=== PATIENT | female | born 1980 | race Two or more races ===

== ENCOUNTER → 2016-07-12 | Outpatient (CLI) | payer OTHER ==
[2016-07-12 11:13] LABS: AUTOMATED NEUTROPHIL # 1.7 TH/MM3 (1.8-7.7); BASOPHIL # 0.1 TH/MM3 (0-0.2); BASOPHIL % 1.2 % (0.0-2.0); EOSINOPHIL # 0.1 TH/MM3 (0-0.4); EOSINOPHIL % 1.8 % (0.0-4.0); HEMATOCRIT 41.2 % (35.0-46.0); HEMO FLAGS DIFF FINAL; LYMPHOCYTE # 2.3 TH/MM3 (1.0-4.8); MEAN CELL VOLUME 83.3 FL (80.0-100.0); MEAN CORPUSCULAR HEMOGLOBIN 27.7 PG (27.0-34.0); MEAN CORPUSCULAR HGB CONC 33.3 % (32.0-36.0); PLATELET COUNT 395 TH/MM3 (150-450); RED BLOOD COUNT 4.95 MIL/MM3 (4.00-5.30); RED CELL DISTRIBUTION WIDTH 13.5 % (11.6-17.2); WHITE BLOOD COUNT 4.4 TH/MM3 (4.0-11.0)
[2016-07-12 11:31] LABS: BACTERIA, URINE RARE /hpf; BLOOD, URINE MOD (NEG); GLUCOSE,URINE NEG (NEG); KETONE, URINE NEG (NEG); MUCUS URINE FEW /lpf (OCC); NITRITE,URINE NEG (NEG); SQUAMOUS EPITHELIAL CELL URINE 2 /hpf (0-5); URINE COLOR YELLOW (YELLW/STRAW)
[2016-07-12 11:42] LABS: ANION GAP 5 MEQ/L (5-15); BICARBONATE 29.2 MEQ/L (21.0-32.0); BLOOD UREA NITROGEN 9 MG/DL (7-18); CHLORIDE 105 MEQ/L (98-107); GLOMERULAR FILTRATION RATE 119 ML/MIN (>89); GLUCOSE,FASTING 101 MG/DL (74-99); POTASSIUM 4.2 MEQ/L (3.5-5.1); SODIUM (NA) 139 MEQ/L (136-145)
[2016-07-12 11:54] LABS: BHCG SCREEN QUALITATIVE LESS THAN 1 MIU/ML (0-5)
== END ==
LOC: CPRE 10:21
PROVIDERS: ATTEND Obstetrics & Gynecology
DX: Z01.812 Encounter for preprocedural laboratory examination (principal); R10.2 Pelvic and perineal pain
CPT/HCPCS: 36415; 80048; 81001; 84703; 85025

== ENCOUNTER → 2016-07-18 | Day surgery (SDC) | payer OTHER ==
[~2016-07-18] VITALS: Ht 165.1 cm; Wt 80.8 kg
[~2016-07-18] MED LIST: ACETAMINOPHEN 1000 MG/100 ML VIAL IV ONE; CHLORHEXIDINE GLUCONATE 2 % 1 PACK (2 CLOTHS) TOPICAL PRN; DO NOT ADM ANY ANTICOAGULANT DRUGS PRN; FAMOTIDINE 20 MG/2 ML VIAL ONE; INSULIN HUMAN REGULAR 1,000 UNITS/10 ML VIAL SQ PRN; KETOROLAC TROMETHAMINE 60 MG/2 ML (IM) VIAL IM ONE; LACTATED RINGER'S 1000 ML INJ 1,000 ML IV ONE; LACTATED RINGER'S 1000 ML IV PRN; METOPROLOL TARTRATE 25 MG TAB PO PRN; MIDAZOLAM HCL 2 MG/2 ML VIAL ONE; ONDANSETRON HCL 4 MG/2 ML VIAL IV PUSH ONE; POVIDONE IODINE 5% (ANTISEPSIS KIT) 4 APPLICATIONS EACH NARE PRN; PROPOFOL 200 MG/20 ML AMP IV ONE; SODIUM CHLORID 0.9% 500 ML IV PRN; ceFAZolin 2 GM PREMIX 50 ML IV SCH; ceFAZolin INJ 1,000 MG VIAL ONE
[2016-07-18 07:12] VITALS: BP 130/70; PULSE 84; RESP 18; TEMP 98.5; O2SAT 99
[2016-07-18 10:44] VITALS: BP 114/62; PULSE 70; RESP 16; TEMP 98.1; O2SAT 99
--- NOTE | 2016-07-18 23:01 | MP ---
cc: ALEXANDR ARVIZU DATE OF SURGERY 07/18/16 PREOPERATIVE DIAGNOSIS Retained IUD placed in [place]. POSTOPERATIVE DIAGNOSIS Retained IUD placed in [place]. PROCEDURE Examination under anesthesia, hysteroscopy, removal of IUD. SURGEON Dr. Danie Arvizu ANESTHESIA General via mask FLUIDS 1000 mL crystalloid ESTIMATED BLOOD LOSS Minimal URINE OUTPUT About 250 mL on straight cath prior to procedure. FINDINGS Uterus was approximately 6-8 weeks in size. The IUD was visualized with the hysteroscope PROCEDURE IN DETAIL The patient was taken to the operating room where general anesthesia was found to be adequate. She was then prepped and draped in the normal sterile fashion in the dorsal lithotomy position. The urinary bladder was emptied of urine using sterile technique. A speculum was placed in the vagina. Single-tooth tenaculum applied to the anterior lip of the cervix. The uterus sounded to approximately 8 cm. The cervix was gently dilated with Zachary dilators, sizes 9-14. Hysteroscopy was then performed with about 200 mL of saline. The IUD was visualized and removed with polyp forceps. After removal of the IUD, the tubal ostia were visualized and no remaining fragments were noted. Of note, the IUD was unfamiliar to the surgeon, the type, appeared to be consistent with Prolene string and four beads. All of the instruments were removed from the vagina. Hemostasis was noted. The patient was awakened from anesthesia and transferred to recovery room in stable condition. The instrument count was correct. MD ANNA Lees/ /9:11 AM /10:58 PM
== END | disposition home or self-care (01) ==
LOC: HSDC 06:19
PROVIDERS: ATTEND Obstetrics & Gynecology
DX: T83.84XA Pain due to genitourinary prosthetic devices, implants and grafts, initial encounter (principal)
CPT/HCPCS: 00952; 58562; 86850; 86900; 86901; J0690; J1885; J2250; J2405; J7120; J0131